=== PATIENT | male | born 1955 | race Caucasian/White ===

== ENCOUNTER → 2017-11-26 | Outpatient (CLI) | payer MEDICARE, OTHER ==
--- NOTE | 2017-11-26 21:58 | CT ---
EXAMINATION: CT brain wo con DATE AND TIME: 11/26/2017 5:35 PM ORDERING PROVIDER: Sean Salas MD CLINICAL INDICATION: Mental Retardation F79 Additional history: Memory loss. Mental retardation. TECHNIQUE: Standard departmental protocol. DLP: 1121 mGy-cm. COMPARISON: None. DESCRIPTION: The calvarium is intact. There is no intracranial hemorrhage. There is no mass or mass e ffect. There is no definite attenuation defect. There is no evidence of global or focal atrophy, and no foci of encephalomalacia. Remainder of the intra-axial and extra-axial compartment examination is unremarkable. The paranasal sinuses, middle ear cavities, and mastoid sinus air cells are clear. The orbits are int act. IMPRESSION: NO ACUTE PROCESS; NO FOCAL FINDINGS.
== END | disposition home or self-care (01) ==
LOC: RADCTMAIN 17:17
PROVIDERS: ATTEND Family Medicine
DX: F79 Unspecified intellectual disabilities (principal)
CPT/HCPCS: 70450

== ENCOUNTER 2021-02-28 07:04 | Day surgery (SDC) | payer MEDICARE, OTHER ==
[2021-02-23 11:17] VITALS: BMI 28.3
[~2021-02-28 07:04] MED LIST: LACTATED RINGERS 1,000 ML IV SCH
[2021-02-28 07:15] VITALS: TEMP 98
[2021-02-28] MEDS ORDERED: LACTATED RINGERS 1,000 ML IV ONE (07:15)
[2021-02-28] MEDS ORDERED: LIDOCAINE 1% (10MG/ML) FOR IV START INTRADERMA ONE (07:16)
[2021-02-28 07:26] LABS: Glucose,Whole Blood 123 mg/dL (75-99)
[2021-02-28] MEDS ORDERED: LIDOCAINE 1% INJ 10MG/ML (20 ML MDV) ONE (07:37)
[2021-02-28] MEDS ORDERED: PROPOFOL 10 MG/ML 20 ML VIAL IV ONE (07:37)
--- NOTE | 2021-02-28 08:28 | P.PCN ---
Date of Procedure: 02/28/21 Description of Procedure: Brief History: Patient is a 65-year-old female presenting for outpatient esophagogastroduodenoscopy and colonoscopy for evaluation of symptoms of dysphagia and change in bowel habits. Patient has been having symptoms of dysphagia primarily to solids occurring for 1 year. He denies any heartburn or odynophagia. He also has been having symptoms of frequent loose bowel movements. He does report a remote history of endoscopy in the . Procedure performed: Esophagogastroduodenoscopy with biopsy Colonoscopy with polypectomy and biopsy Estimated blood loss: Minimal. Preoperative diagnosis: Esophageal dysphagia, change in bowel habits/shoulder bowel habits, diarrhea, last colonoscopy in . Anesthesia: MAC Procedure: After informed consent was obtained from the patient was brought into the endoscopy unit and IV sedation was administered by anesthesia under continuous monitoring. Initially upper endoscopy was done. The Olympus GF 190 video endoscope was inserted into the mouth and esophagus intubated without any difficulty and was gradually advanced into the stomach and duodenum and carefully examined. The bulb and second part of the duodenum appeared normal, with biopsies taken to rule out celiac sprue. The scope was then withdrawn into the stomach adequately insufflated with air and upon careful examination the antrum and body, cardia and fundus appeared normal, with biopsies taken. The scope was then withdrawn into the esophagus. The GE junction was located at 35 cm to the incisors, with a 4 centimeter hiatal hernia noted. 5 cm of salmon- colored mucosa with some erythema and superficial erosions consistent with red spected Robledo's esophagus and LA grade B distal esophagitis noted. Rest of the esophagus appeared normal. Patient tolerated the procedure well. At this time the patient continued to remain sedation. Initial digital rectal examination was normal. Olympus CF 190 video colonoscope was then inserted into the rectum and gradually advanced to the cecum without any difficulty. Careful examination was performed as the scope was gradually being withdrawn. The prep was fair with semisolid stool throughout the colon. Incomplete visualization of mucosa. The cecum, ascending colon, transverse colon, descending colon, sigmoid colon and rectum appeared normal, however the visualization was limited by fair prep. Random biopsies were taken of the left colon due to diarrhea. 2 diminutive ulcer in 1-2 mm in size removed from the transverse colon and descending colon with cold forcep polypectomy. Retroflexion was performed in the rectum and no lesions were noted, with moderate internal hemorrhoids seen. Patient tolerated the procedure well. Impression: 1. LA grade B esophagitis. Suspected Robledo's. Moderate hiatal hernia. Biopsies of the duodenum, antrum and body and lower esophagus. 2. 2 diminutive polyps removed with cold forceps from the transverse colon and descending colon. Otherwise, normal-appearing colon from rectum to cecum and normal appearing terminal ileum although complete visualization was limited by fair prep. Random biopsies taken of the left colon due to altered bowel function. Recommendations: Findings of this examination were discussed with the patient as well as his family. Okay to resume diet. Okay to resume medications. Await pathology from biopsies and polypectomies. Follow-up in the GI clinic as needed. Patient has been given a 3 month prescription for omeprazole 20 mg daily in the setting of esophagitis.
[2021-02-28 08:49] VITALS: BP 106/66; PULSE 82; RESP 16
== END 2021-02-28 09:24 | disposition home or self-care (01) ==
LOC: ORWHC2ENDO 07:04
PROVIDERS: ATTEND Internal Medicine
DX: K29.50 Unspecified chronic gastritis without bleeding (principal); K22.70 Barrett's esophagus without dysplasia; K20.90 Esophagitis, unspecified without bleeding; R13.10 Dysphagia, unspecified; K44.9 Diaphragmatic hernia without obstruction or gangrene; K63.5 Polyp of colon; K64.8 Other hemorrhoids; R19.4 Change in bowel habit; E78.5 Hyperlipidemia, unspecified; Z79.899 Other long term (current) drug therapy
CPT/HCPCS: 88305; 88342; 45380; 43239; J2001; J2704

== ENCOUNTER 2024-06-17 19:19 | Emergency (ER) | payer MEDICARE, OTHER ==
[2024-06-17 19:38] VITALS: RESP 18
[2024-06-17] MEDS: LIDOCAINE 1% INJ 10MG/ML (20 ML MDV) SQ ONE (20:20)
[2024-06-17] MEDS: DIPH,PERTUS(ACELL)TETVAC-LF 0.5 ML VIAL IM ONE (20:20)
--- NOTE | 2024-06-17 20:59 | CT ---
EXAMINATION TYPE: CT brain cspine wo con CT DLP: 1408.8 mGycm, Automated exposure control for dose reduction was used. DATE OF EXAM: 06/17/2024 8:23 PM COMPARISON: None. CLINICAL INDICATION:Male, 68 years old with history of fall with head injury; tripped over a pot hole TECHNIQUE: Brain: Multiple axial CT images of the brain were obtained without IV contrast. Cspine: Axial CT images from the skull base to the inferior aspect of T2 we obtained without intraven ous contrast. Coronal and sagittal reformatted images were also reviewed. . FINDINGS: Brain: Extra-axial spaces: No abnormal extra-axial fluid collections. Ventricular system: Within normal limits Cerebral parenchyma: No acute intraparenchymal hemorrhage or mass effect. The hahn-white junction is well differentiated. Cerebellum: Unremarkable. Mass effect: No evidence of midline shift. Intracranial vasculature: Atherosclerotic calcifications of the intracranial vessels. Soft tissues: There is a soft tissue defect/laceration suggested in the left supraorbital soft tissue s. Calvarium/osseous structures: No acute depressed skull fracture. Paranasal sinuses and mastoid air cells: Small mucosal retention cyst noted within the left maxillary sinus. Visualized orbits: Orbital contents are intact. Cervical spine: Fracture: No acute fractures. Osseous structures: Moderate multilevel disc degenerative disease. Vertebral alignment: Within normal limits. Spinal canal/Neural Foramina: Few disc osteophyte complexes are seen with no evidence of significant spinal canal narrowing. No evidence for significant neural foraminal stenosis. Neck soft tissues: Prevertebral soft tissues are within normal limits. Other: The airway is patent. The lung apices are clear. IMPRESSION: 1. No acute intracranial process. 2. Soft tissue defect/laceration suggested in the left supraorbital soft tissues. Correlate with exam . 3. No acute cervical spine fractures. 4. Moderate multilevel disc degenerative disease.
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
[2024-06-17 21:37] VITALS: BP 133/84; PULSE 78; TEMP 98.1
== END 2024-06-17 21:34 | disposition home or self-care (01) ==
LOC: EC 19:19
DX: S01.112A Laceration without foreign body of left eyelid and periocular area, initial encounter (principal); Z23 Encounter for immunization; W01.0XXA Fall on same level from slipping, tripping and stumbling without subsequent striking against object, initial encounter; Y93.01 Activity, walking, marching and hiking
CPT/HCPCS: 72125; 70450; 90715; 12013; 99283; 90471; J2001